=== PATIENT | female | born 1990 | race American Indian/Alaskan Native ===

== ENCOUNTER 2021-08-31 23:13 | Emergency (ER) | payer SELFPAY ==
[2021-08-31 23:21] VITALS: BP 124/86
[2021-09-01 01:59] LABS: Basophils % (Auto) 0.4 % (0.0-1.8); Eosinophils # (Auto) 0.1 K/mm3 (0.0-0.4); Hematocrit 42.1 % (30.3-42.9); Hemoglobin 13.7 gm/dl (10.1-14.3); Lymphocytes # (Auto) 2.4 K/mm3 (1.2-5.4); Lymphocytes % (Auto) 42.2 % (13.4-35.0); Mean Corpuscular HGB Conc 32 % (30-34); Mean Corpuscular Volume 97 fl (79-97); Monocytes # (Auto) 0.4 K/mm3 (0.0-0.8); Monocytes % (Auto) 6.2 % (0.0-7.3); Platelet Count 243 K/mm3 (140-440); Red Blood Count 4.37 M/mm3 (3.65-5.03); Red Cell Distribution Width 13.5 % (13.2-15.2)
--- NOTE | 2021-09-01 02:03 | Emergency Department Report ---
ED Chest Pain HPI - General Chief Complaint: Chest Pain Stated Complaint: CHEST PAIN Time Seen by Provider: 09/01/21 01:08 Source: patient Mode of arrival: Stretcher Limitations: No Limitations - History of Present Illness Initial Comments: 30-year-old -[place] female presents to emergency department with complaint of generalized chest pain that started at about 10 PM last night. No radiation of the pain. No known aggravating or alleviating factors. She denies any shortness of breath, fever, cough, lower extremity swelling, back pain, jesus sea, vomiting or diaphoresis. Separately, the patient also complains of a small bump to the right upper and lower eyelid that has been going on for weeks if not longer. It is slightly tender/painful. The patient is a tobacco smoker, but otherwise denies any past medical history. She has not taken anything for symptoms prior to presentation today. No recent travel or sick contacts at home. No family history of early [place]. - Related Data Previous Rx's Medication Instructions Recorded Last Taken Type Amoxicillin [Trimox CAP] 500 mg PO Q8H #21 capsule 09/01/21 Unknown Rx Allergies Allergy/AdvReac Type Severity Reaction Status Date / Time No Known Allergies Allergy Verified 08/31/21 23:21 Heart Score - HEART Score History: Slightly suspicious EKG: Normal Age: < 45 Risk factors: 1-2 risk factors Troponin: < normal limit HEART Score: 1 - EKG Read Time Time EKG Completed: 00:58 EKG Read Time: 00:59 ED Review of Systems ROS: Stated complaint: CHEST PAIN Other details as noted in HPI Comment: All other systems reviewed and negative Constitutional: denies: chills, fever Eyes: denies: eye pain, vision change ENT: denies: ear pain, throat pain Respiratory: denies: cough, shortness of breath Cardiovascular: chest pain. denies: palpitations, edema Gastrointestinal: denies: abdominal pain, vomiting Genitourinary: denies: dysuria, discharge Musculoskeletal: denies: back pain, arthralgia Skin: other (Bump on right upper and lower eyelids). denies: rash Neurological: denies: headache, weakness ED Past Medical Hx - Past Medical History Previous Medical History?: No - Medications Home Medications: Home Medications Medication Instructions Recorded Confirmed Last Taken Type Amoxicillin [Trimox CAP] 500 mg PO Q8H #21 capsule 09/01/21 Unknown Rx ED Physical Exam - General Limitations: No Limitations - Other Other exam information: GENERAL: The patient is well-developed well-nourished. HENT: Normocephalic. Atraumatic. Patient has moist mucous membranes. EYES: Extraocular motions are intact. NECK: Supple. Trachea is midline. CHEST/LUNGS: Clear to auscultation. There is no respiratory distress noted. There is some reproducible chest wall tenderness to palpation, without crepitus or deformity. HEART/CARDIOVASCULAR: Regular. There is no tachycardia. There is no murmur. ABDOMEN: Abdomen is soft, nontender. Patient has normal bowel sounds. There is no abdominal distention. SKIN: Skin is warm and dry. There is some mild erythema and midline swelling to the right upper and lower eyelid margin. NEURO: The patient is awake, alert, and oriented. The patient is cooperative. Normal speech. MUSCULOSKELETAL: There is no tenderness or deformity. There is no limitation range of motion. ED Course Vital Signs 08/31/21 09/01/21 23:20 03:36 Temperature 98.3 F Pulse Rate 88 63 Respiratory 18 16 Rate Blood Pressure 124/86 [Left] O2 Sat by Pulse 99 100 Oximetry EDGAR score - Edgar Score Age > 65: (0) No Aspirin use within the Past 7 Days: (0) No 3 or more CAD Risk Factors: (0) No 2 or more Angina events in past 24 hrs: (1) Yes Known CAD with more than 50% Stenosis: (0) No Elevated Cardiac Markers: (0) No ST Deviation Greater than 0.5mm: (0) No EDGAR Score: 1 ED Medical Decision Making - Lab Data Result diagrams: 09/01/21 01:39 09/01/21 01:39 Lab Results 09/01/21 09/01/21 09/01/21 Range/Units 01:39 01:39 01:39 WBC 5.7 (4.5-11.0) K/mm3 RBC 4.37 (3.65-5.03) M/mm3 Hgb 13.7 (10.1-14.3) gm/dl Hct 42.1 (30.3-42.9) % MCV 97 (79-97) fl MCH 31 (28-32) pg MCHC 32 (30-34) % RDW 13.5 (13.2-15.2) % Plt Count 243 (140-440) K/mm3 Lymph % (Auto) 42.2 H (13.4-35.0) % Gila % (Auto) 6.2 (0.0-7.3) % Eos % (Auto) 1.0 (0.0-4.3) % Baso % (Auto) 0.4 (0.0-1.8) % Lymph # (Auto) 2.4 (1.2-5.4) K/mm3 Gila # (Auto) 0.4 (0.0-0.8) K/mm3 Eos # (Auto) 0.1 (0.0-0.4) K/mm3 Baso # (Auto) 0.0 (0.0-0.1) K/mm3 Seg Neutrophils % 50.2 (40.0-70.0) % Seg Neutrophils # 2.9 (1.8-7.7) K/mm3 Sodium 140 (137-145) mmol/L Potassium 3.5 L (3.6-5.0) mmol/L Chloride 102.6 (98-107) mmol/L Carbon Dioxide 27 (22-30) mmol/L Anion Gap 14 mmol/L BUN 7 (7-17) mg/dL Creatinine 0.6 (0.6-1.2) mg/dL Estimated GFR > 60 ml/min BUN/Creatinine Ratio 12 % Glucose 82 (65-100) mg/dL Calcium 9.2 (8.4-10.2) mg/dL Total Bilirubin 0.50 (0.1-1.2) mg/dL AST 19 (5-40) units/L ALT 13 (7-56) units/L Alkaline Phosphatase 58 (35-129) units/L Troponin T < 0.010 (0.00-0.029) ng/mL Total Protein 7.7 (6.3-8.2) g/dL Albumin 4.6 (3.9-5) g/dL Albumin/Globulin Ratio 1.5 % TSH 0.702 (0.270-4.200) mlU/mL - EKG Data -: EKG Interpreted by [facility] EKG shows normal: sinus rhythm, axis, intervals, QRS complexes, ST-T waves Rate: normal - EKG Data When compared to previous EKG there are: previous EKG unavailable Interpretation: normal EKG - Radiology Data Radiology results: image reviewed interpreted by me: Chest x-ray does not show any acute process. There are no pleural effusions, obvious pneumonia and there is no pneumothorax. No widened mediastinum. - Medical Decision Making This patient presents to the emergency department with complaint of generalized chest pain that woke her from sleep this evening. Heart and lung sounds are normal to auscultation and the patient does not appear in any respiratory or a cute distress. EKG does not have any morphology consistent with ST elevation myocardial infarction and is normal. Chest x-ray does not show any pneumonia, pleural effusions, pneumothorax, widened mediastinum, or any other acute process. Patient's labs have been unremarkable including CBC, metabolic panel, negative troponin and normal thyroid function. She is low on the heart and EDGAR score. Vital signs reassuring including being afebrile. She does not complain of any shortness of breath. She has low on the Wells score criteria and negative on the pulmonary embolism rule out criteria. The patient says that she is asymptomatic upon reevaluation. For all these reasons the patient appears safe for discharge home at this time. Her contact information has been sent over to the [facility], and someone from their office should be contacting her shortly for close outpatient follow-up as part of our hospitals low risk chest pain protocol. The patient has some mild erythema and swelling to the right upper and lower eyelid margin. This could be stye versus blepharitis. The patient was placed on antibiotics and has been given outpatient referrals for primary care. Critical Care Time: No Critical care attestation.: If time is entered above; I have spent that time in minutes in the direct care of this critically ill patient, excluding procedure time. ED Disposition Clinical Impression: Chest pain Qualifiers: Chest pain type: unspecified Qualified Code(s): R07.9 - Chest pain, unspecified Blepharitis Qualifiers: Blepharitis type: unspecified type Laterality: right Eyelid: both upper and lower Qualified Code(s): H01.00A - Unspecified blepharitis right eye, upper and lower eyelids Disposition: HOME / SELF CARE / HOMELESS Is pt being admited?: No Condition: Stable Instructions: Nonspecific Chest Pain, Adult Additional Instructions: Please follow-up with a primary care physician in the next few days. I have given you a referral for a local primary care physician, Dr. Davey, and a primary care clinic, [facility]. I am sending your contact information over to the [facility], and someone from their office should be contacting you shortly for close outpatient follow-up. Just in case, I am giving you a referral for one of their brand recorder, Dr. Briseno. Return to the emergency department with any worsening of your symptoms, new or concerning symptoms not addressed during this current emergency department visit, or with any acute distress. Prescriptions: Amoxicillin [Trimox CAP] 500 mg PO Q8H #21 capsule Referrals: QUINCY DAVEY MD [Staff Physician] - 3-5 Days MELVA BRISENO MD [Staff Physician] - 3-5 Days [facility] [Provider Group] - 3-5 Days Forms: Work/School Release Form(ED) Time of Disposition: 03:12
[2021-09-01 02:19] LABS: Alanine Aminotransferase 13 units/L (7-56); Albumin 4.6 g/dL (3.9-5); Blood Urea Nitrogen 7 mg/dL (7-17); Calcium 9.2 mg/dL (8.4-10.2); Hemolysis Index 12
--- NOTE | 2021-09-01 02:21 | XRay Report ---
XR chest routine 2V INDICATION / CLINICAL INFORMATION: CP. COMPARISON: None available. FINDINGS: SUPPORT DEVICES: None. HEART /PULMONARY VASCULATURE: No significant abnormality. LUNGS / PLEURA: No significant pulmonary or pleural abnormality. No pneumothorax. ADDITIONAL FINDINGS: No significant additional findings. IMPRESSION: 1. No acute findings. Signer Name: Shaheed Parnell MD Signed: 09/01/2021 2:16 AM Workstation Name: [id number]
[2021-09-01 02:49] LABS: BUN/Creatinine Ratio 12
--- NOTE | 2021-09-01 10:24 | Electrocardiograph Report ---
[facility] Test Date: 2021-09-01 Test Time: 00:58:55 Pat Name: ELIANA PERKINS Department: Room: Gender: F Rn Telemetry: JOE : 1990 Requested By: EULALIO GANDHI Order Number: [id number] Reading MD: Valentin Briseno Measurements Intervals Harmans Rate: 73 P: 44 NV: 146 QRS: 57 QRSD: 101 T: 40 QT: 368 QTc: 406 Interpretive Statements Sinus rhythm No previous ECG available for comparison Electronically Signed On 09-01-2021 10:24:15 EST by Valentin Briseno
== END 2021-09-01 03:36 | disposition home or self-care (01) ==
LOC: ED 23:13
DX: R07.89 Other chest pain (principal); H01.001 Unspecified blepharitis right upper eyelid; Z79.899 Other long term (current) drug therapy
CPT/HCPCS: 36415; 71046; 80053; 84443; 84484; 85025; 93005; 99284

== ENCOUNTER 2022-05-18 05:38 | Emergency (ER) | payer MEDICAID ==
[2022-05-18 05:54] VITALS: BP 124/76
[2022-05-18] MEDS ORDERED: ACETAMINOPHEN 500 MG TAB PO ONE (08:44)
[2022-05-18] MEDS ORDERED: TETANUS,DIPH,PERTUSS(ACELL) VACCINE 0.5 ML SYRINGE IM ONE (08:44)
--- NOTE | 2022-05-18 09:14 | XRay Report ---
LEFT FOOT 3 VIEWS INDICATION: STEPPED ON METAL RO FB. COMPARISON: None. IMPRESSION: No acute osseous or soft tissue abnormality. No significant DJD. No radiopaque foreig n body is detected on x-ray. Signer Name: Samuel White Jr, MD Signed: 05/18/2022 9:09 AM Workstation Name: [id number]
--- NOTE | 2022-05-18 10:19 | Emergency Department Report ---
ED Lower Extremity HPI - General Chief Complaint: Extremity Injury, Lower Stated Complaint: FOOT PAIN Time Seen by Provider: 05/18/22 08:35 Source: patient, EMS Mode of arrival: Ambulatory Limitations: No Limitations - History of Present Illness Initial Comments: 31 yo comes to er with co that she has something stuck / embedded in her foot. She thinks its a nail but is not sure. Denies fall/trauma. Ambulatory to ER. No bleeding tdap utd -: Gradual Place: home Severity: mild Improves With: immobilization Worsens With: movement - Related Data Previous Rx's Medication Instructions Recorded Last Taken Type Amoxicillin [Trimox CAP] 500 mg PO Q8H #21 capsule 09/01/21 Unknown Rx Allergies Allergy/AdvReac Type Severity Reaction Status Date / Time No Known Allergies Allergy Verified 08/31/21 23:21 ED Review of Systems ROS: Stated complaint: FOOT PAIN Other details as noted in HPI Comment: All other systems reviewed and negative ED Past Medical Hx - Past Medical History Previous Medical History?: No - Surgical History Past Surgical History?: No - Family History Family history: no significant - Social History Smoking Status: Never Smoker Substance Use Type: Alcohol - Medications Home Medications: Home Medications Medication Instructions Recorded Confirmed Last Taken Type Amoxicillin [Trimox CAP] 500 mg PO Q8H #21 capsule 09/01/21 Unknown Rx ED Physical Exam - General Limitations: No Limitations General appearance: alert, in no apparent distress - Head Head exam: Present: atraumatic, normocephalic - Eye Eye exam: Present: normal appearance - ENT ENT exam: Present: mucous membranes moist - Neck Neck exam: Present: normal inspection - Respiratory Respiratory exam: Present: normal lung sounds bilaterally. Absent: respiratory distress - Cardiovascular Cardiovascular Exam: Present: regular rate, normal rhythm. Absent: systolic murmur, diastolic murmur, rubs, gallop - GI/Abdominal GI/Abdominal exam: Present: soft, normal bowel sounds - Extremities Exam Extremities exam: Present: normal inspection - Back Exam Back exam: Present: normal inspection - Neurological Exam Neurological exam: Present: alert, oriented X3 - Psychiatric Psychiatric exam: Present: normal affect, normal mood - Skin Skin exam: Present: warm, dry, intact, normal color. Absent: rash ED Course Vital Signs 05/18/22 05:41 Temperature 98 F Pulse Rate 80 Respiratory 16 Rate Blood Pressure 124/76 [Right] O2 Sat by Pulse 99 Oximetry ED Lower Extremity MDM - Radiology Data Radiology results: report reviewed, image reviewed no fb - Medical Decision Making Vital Signs 05/18/22 05:41 Temperature 98 F Pulse Rate 80 Respiratory 16 Rate Blood Pressure 124/76 [Right] O2 Sat by Pulse 99 Oximetry xray no fb no fb on clinical exam neuro vasc intact ambulatory dc home with dc plan of care including diet, meds, activity and follow up. - Differential Diagnosis ro fb Critical care attestation.: If time is entered above; I have spent that time in minutes in the direct care of this critically ill patient, excluding procedure time. ED Disposition Clinical Impression: Foot pain, Puncture wound Disposition: 01 HOME / SELF CARE / HOMELESS Is pt being admited?: No Does the pt Need Aspirin: No Condition: Stable Instructions: Foot Pain Additional Instructions: KEEP FOOT CLEAN AND DRY WEAR SHOES OVER THE COUNTER MOTRIN OR TYLENOL FOR PAIN FOLLOW UP WITH PCP REFERRAL BELOW Referrals: QUINCY ANDERSON MD [Primary Care Provider] - 3-5 Days Time of Disposition: 10:18
== END 2022-05-18 10:59 | disposition home or self-care (01) ==
LOC: ED 05:38
DX: M79.672 Pain in left foot (principal); Z72.89 Other problems related to lifestyle; Z79.899 Other long term (current) drug therapy; X58.XXXA Exposure to other specified factors, initial encounter; Y93.89 Activity, other specified; Y92.89 Other specified places as the place of occurrence of the external cause; Y99.8 Other external cause status
CPT/HCPCS: 90471; 90715; 99283